=== PATIENT | male | born 1960 ===

== ENCOUNTER 2017-02-16 11:24 | Emergency (ER) | payer OTHER ==
[~2017-02-16] VITALS: Ht 167.6 cm; Wt 82.6 kg
[2017-02-16] MEDS ORDERED: NAPR220C15 PO (11:35)
[2017-02-16] MEDS ORDERED: INSU100V28 (11:35)
[2017-02-16] MEDS ORDERED: ONDANSETRON ODT 4 MG TAB.RAPDIS SL ONE (11:58)
[2017-02-16] MEDS ORDERED: HYDROCODONE/APAP 5-325MG TABLET PO ONE (12:00)
[2017-02-16] MEDS ORDERED: IV NS 1000 ML 1,000 ML IV ONE (12:15)
[2017-02-16 12:31] LABS: BASOPHILS # (AUTO) 0.1 K/uL (0.0-8.0); CREATININE 1.2 mg/dL (0.6-1.3); EOSINOPHILS # (AUTO) 0.1 K/uL (0.0-0.7); EOSINOPHILS % (AUTO) 1.6 % (0.0-7.0); HEMATOCRIT 51.4 % (40-50); HEMOGLOBIN 17.6 G/DL (14.0-18.0); LYMPHOCYTES # (AUTO) 3.8 K/UL (0.8-4.8); LYMPHOCYTES % (AUTO) 41.2 % (20.5-51.5); MEAN CORPUSCULAR HGB CONC 34 g/dL (32.0-37.0); MEAN CORPUSCULAR VOLUME 81.8 FL (82.0-92.0); MONOCYTES # (AUTO) 0.7 K/UL (0.1-1.30); MONOCYTES % (AUTO) 7.4 % (0.0-11.0); NEUTROPHILS # (AUTO) 4.6 K/UL (1.8-8.9); NEUTROPHILS % (AUTO) 48.8 % (38.5-71.5); PLATELET COUNT (AUTO) 196 K/UL (150-450); POTASSIUM 4.2 mmol/L (3.5-5.1); RED BLOOD CELL COUNT(AUTO) 6.28 MIL/UL (4.7-6.1); WHITE BLOOD COUNT (AUTO) 9.3 K/UL (4.0-11.2)
[2017-02-16 12:38] LABS: BILIRUBIN,TOTAL 1.5 mg/dL (0.2-1.0); TOTAL PROTEIN, SERUM 7.5 g/dL (6.4-8.2)
[2017-02-16] MEDS ORDERED: KETOROLAC TROMETHAMINE 30 MG INJ IVP ONE (13:00)
[2017-02-16] MEDS ORDERED: ONDANSETRON ODT 4 MG TAB.RAPDIS ONE (13:20)
[2017-02-16] MEDS ORDERED: HYDROCODONE/APAP 5-325MG TABLET ONE (13:21)
[2017-02-16] MEDS ORDERED: KETOROLAC TROMETHAMINE 30 MG INJ ONE (13:21)
[2017-02-16 14:19] VITALS: BP 101/61
--- NOTE | 2017-02-16 14:19 | NUR ---
Patient discharged to home in stable conditon. Written and verbal after care instructions given. Patient verbalizes understanding of instructions.pt with and brother. pt not driving
== END 2017-02-16 14:27 | disposition home or self-care (01) ==
LOC: ER 11:24
DX: S92.331A Displaced fracture of third metatarsal bone, right foot, initial encounter for closed fracture (principal); S92.341A Displaced fracture of fourth metatarsal bone, right foot, initial encounter for closed fracture; V89.2XXA Person injured in unspecified motor-vehicle accident, traffic, initial encounter; Y93.89 Activity, other specified; Y92.410 Unspecified street and highway as the place of occurrence of the external cause; Y99.8 Other external cause status
CPT/HCPCS: 29515; 70450; 72040; 73620; 74022; 80053; 82550; 84484; 85025; 93005; 96361; 96374; 99285; A4663; J1885; J7030; Q0162; 36415; 70030-TC